=== PATIENT | female | born 1940 | race Caucasian/White ===

== ENCOUNTER 2016-09-21 08:18 | Emergency (ER) | payer OTHER ==
[2016-09-21 08:40] VITALS: BP 118/74
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
--- NOTE | 2016-09-21 10:10 | RAD ---
INDICATION: 3 days productive cough. Congestion. COMPARISON: No relevant prior exams available on the [facility]. TECHNIQUE: Dual energy PA and routine lateral views of the chest were obtained. REPORT: Clear lungs and pleural spaces. Negative for pneumothorax. The heart, pulmonary vasculature, and mediastinal contours are unremarkable. Unremarkable osseous structures and soft tissue contours. IMPRESSION: No evidence for pneumonia. No evidence for acute intrathoracic disease.
== END 2016-09-21 10:38 | disposition home or self-care (01) ==
LOC: UCEAST 08:18
DX: J40 Bronchitis, not specified as acute or chronic (principal); J32.9 Chronic sinusitis, unspecified; J98.01 Acute bronchospasm; I10 Essential (primary) hypertension; Z88.0 Allergy status to penicillin
CPT/HCPCS: 71020; 99212; G0463

== ENCOUNTER 2016-09-24 08:53 | Emergency (ER) | payer OTHER ==
[2016-09-24 09:30] VITALS: BP 152/90
[2016-09-24] MEDS ORDERED: Albuterol 2.5 MG/3 ML NEB.SOL* (0.083%) INH ONE (10:26)
[2016-09-24] MEDS ORDERED: Ipratropium 0.5MG/2.5ML NEB* 0.5 MG/2.5 ML NEB.SOLN INH ONE (10:26)
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
== END 2016-09-24 12:23 | disposition home or self-care (01) ==
LOC: UCEAST 08:53
DX: J11.1 Influenza due to unidentified influenza virus with other respiratory manifestations (principal); J40 Bronchitis, not specified as acute or chronic; Z88.5 Allergy status to narcotic agent; Z88.0 Allergy status to penicillin
CPT/HCPCS: 87502; 99212; G0463; J7644

== ENCOUNTER 2022-06-20 17:28 | Observation (INO) ==
[2022-06-20 18:55] LABS: Hematocrit 46 % (35-47); Hemoglobin 15.2 g/dL (12.0-16.0); Mean Corpuscular HGB Conc 33 g/dL (31-36); Mean Corpuscular Hemoglobin 31 pg (27-31); Mean Corpuscular Volume 94 fL (80-97); Mean Platelet Volume 9.4 fL (7.4-10.4); Platelet Count 210 10^3/uL (150-450); Red Blood Count 4.87 10^6 /uL (3.70-4.87); Red Cell Distribution Width 14 % (10-15); White Blood Count 6.6 10^3/uL (3.5-10.8)
[2022-06-20 19:04] LABS: ABS Basophils 0.1 10^3/ul (0-0.2); ABS Eosinophils 0.1 10^3/ul (0-0.6); ABS Lymphocytes 2.1 10^3/ul (1.0-4.8); ABS Monocytes 0.5 10^3/ul (0-0.8); ABS Neutrophils 3.9 10^3/ul (1.5-7.7); Eosinophil % 1.4 %; Lymphocyte % 31.3 %; Nucleated Red Blood Cells % 0.1
[2022-06-20 19:44] LABS: Urine Appearance Clear; Urine Bilirubin Negative (Negative); Urine Blood Negative (Negative); Urine Color Colorless; Urine Glucose Negative (Negative); Urine Ketones Negative (Negative); Urine Nitrite Negative (Negative); Urine Protein Negative (Negative); Urine Specific Gravity 1.002 (1.002-1.030); Urine Urobilinogen Negative (Negative)
[2022-06-20 20:05] LABS: Albumin 4.5 g/dL (3.2-5.2); Albumin/Globulin Ratio 1.9 (1-3); C Reactive Protein 1.25 mg/L (<8.01); Calcium 9.3 mg/dL (8.6-10.3); Globulin 2.4 g/dL (2-4); Potassium 3.8 mmol/L (3.5-5.0); Total Bilirubin 0.5 mg/dL (0.2-1.0); Total Protein 6.9 g/dL (6.4-8.9); eGFR CKD-EPI 63.8 (>60)
[2022-06-20 20:28] LABS: TSH Ultra Thyroid Stim Horm 7.11 mcIU/mL (0.34-5.60)
[2022-06-20 20:34] LABS: Magnesium 2.1 mg/dL (1.9-2.7)
[2022-06-20] MEDS ORDERED: Potassium Chlor 20 meq TAB.ER PO ONE (21:15)
[2022-06-20 21:24] LABS: Free T4 0.69 ng/dL (0.61-1.12)
[2022-06-20] MEDS ORDERED: Ondansetron 4 mg VIAL 2 MG/ML 2 ml VIAL IV PRN (21:57)
[2022-06-20 22:37] LABS: High Sensitivity Troponin 1 Hr 6 pg/mL (<15)
[2022-06-20] MEDS ORDERED: Potassium Chloride LIQUID 20 MEQ/15 ML LIQUID PO ONE (23:00)
[2022-06-20] MEDS ORDERED: Metoprolol Tartrate 5 mg VIAL 5 ml VIAL (1 mg/ml) IV ONE (23:49)
[2022-06-21 05:18] LABS: Calcium 7.4 mg/dL (8.6-10.3); Potassium 3.5 mmol/L (3.5-5.0); eGFR CKD-EPI 87.7 (>60)
[2022-06-21] MEDS ORDERED: Metoprolol Tartrate 5 mg VIAL 5 ml VIAL (1 mg/ml) IV ONE (06:04)
[2022-06-21] MEDS ORDERED: Potassium Chlor 20 meq TAB.ER PO ONE (07:39)
[2022-06-21 09:04] LABS: Magnesium 1.7 mg/dL (1.9-2.7)
[2022-06-21 12:45] VITALS: BP 109/71
== END 2022-06-21 12:44 | disposition home or self-care (01) ==
LOC: EDHOLD 17:28 → ED 17:28 → EDHOLD 06-21 12:43
PROVIDERS: ADMIT Internal Medicine; ATTEND Internal Medicine